=== PATIENT | male | born 1965 | race Two or more races ===

== ENCOUNTER 2025-05-29 13:16 | Emergency (ER) | payer OTHER ==
[~2025-05-29] VITALS: Ht 167.6 cm; Wt 72.6 kg
[2025-05-29] MEDS ORDERED: LOSARTAN POTASS50 MG PO (13:45)
[2025-05-29] MEDS ORDERED: ATORVASTATIN CA20 MG PO (13:46)
[2025-05-29] MEDS ORDERED: AMLODIPINE-OLM1 EACH PO (13:47)
[2025-05-29] MEDS ORDERED: OMEPRAZOLE MAGN20 MG PO (13:48)
[2025-05-29] MEDS ORDERED: NASAL MIST126 ML (13:48)
[2025-05-29] MEDS ORDERED: LACTOBACILLUS ACIDOPHILUS 1 CAP CAP PO ONE (17:45)
[2025-05-29] MEDS ORDERED: 0.9 % SODIUM CHLORIDE 1,000 ML IV ONE (17:45)
[2025-05-29 18:55] LABS: BASO % 0.1 % (0.1-1.2); EOS # 0.02 (0.04-0.54); EOS % 0.2 % (0.7-7.0); LYMPH # 0.82 (1.18-3.74); LYMPH % 9.3 % (19.3-53.1); MEAN PLATELET VOLUME 9.00 fl (9.4-12.4); MONO # 0.57 (0.24-0.82); MONO % 6.5 % (4.7-12.5); NEUT # 7.38 (1.56-6.13); NEUT % 83.6 % (34.0-71.1); RED CELL DISTRIBUTION WIDTH 13.5 % (11.6-14.4)
[2025-05-29 19:35] LABS: ALT/SGPT 133.0 U/L (12-78); AST/SGOT 69.0 U/L (15-37); BILIRUBIN TOTAL 0.4 mg/dL (0.3-1.2); BUN CREA RATIO 13.0 (7.0-25.0); CREATININE SERUM 1.06 mg/dL (0.70-1.30); GFR 72.01; GLOBULINA 5.0 G/DL (2.4-3.5); GLUCOSE FASTING 132.0 mg/dL (65-100); OSMOLALITY SERUM 278.0 MOSM/KG (275-295)
[2025-05-29 19:55] LABS: URINE APPEARANCE Clear; URINE BILIRRUBIN Negative (NEGATIVE); URINE BLOOD Small; URINE COLOR Yellow; URINE GLUCOSE Negative (NEGATIVE); URINE KETONE Negative (NEGATIVE); URINE LEUKOCYTE Negative; URINE NITRATE Negative; URINE PROTEIN Trace (NEGATIVE); URINE UROBILINOGEN 1.0 E.U./dl
[2025-05-29 19:59] LABS: URINE BACTERIA 8.4 uL (0.0-1933); URINE EPITHELIAL CELLS 11.2 uL (0.0-38.8); URINE RBC 27.1 uL (0.0-20.8); URINE WBC 11.0 uL (0.0-23.2)
[2025-05-29 20:13] LABS: URINE CAST 0.14 uL (0.0-1.40)
== END 2025-05-29 22:43 | disposition home or self-care (01) ==
LOC: ER 13:17
PROVIDERS: Preventive Medicine Public Health & General Preventive Medicine
DX: R53.1 Weakness (principal); D64.89 Other specified anemias; R53.81 Other malaise; I10 Essential (primary) hypertension; Z88.0 Allergy status to penicillin

== ENCOUNTER 2025-06-01 08:31 | Emergency (ER) | payer OTHER ==
[~2025-06-01] VITALS: Ht 167.6 cm; Wt 72.6 kg
[~2025-06-01 08:31] MED LIST: AMLODIPINE-OLM1 EACH PO; ATORVASTATIN CA20 MG PO; LOSARTAN POTASS50 MG PO; NASAL MIST126 ML; OMEPRAZOLE MAGN20 MG PO
[2025-06-01] MEDS ORDERED: KETOROLAC TROMETHAMINE 30 MG VIAL IV ONE (10:15)
[2025-06-01] MEDS ORDERED: FAMOTIDINE/PF 20 MG/2 ML VIAL IV ONE (10:15)
[2025-06-01] MEDS ORDERED: 0.9 % SODIUM CHLORIDE 1,000 ML IV ONE (10:15)
[2025-06-01] MEDS ORDERED: LACTOBACILLUS ACIDOPHILUS 1 CAP CAP PO ONE (10:15)
[2025-06-01 11:28] LABS: BASO % 0.0 % (0.1-1.2); EOS # 0.01 (0.04-0.54); EOS % 0.1 % (0.7-7.0); LYMPH # 0.61 (1.18-3.74); LYMPH % 8.0 % (19.3-53.1); MEAN PLATELET VOLUME 9.50 fl (9.4-12.4); MONO # 0.62 (0.24-0.82); MONO % 8.1 % (4.7-12.5); NEUT # 6.34 (1.56-6.13); NEUT % 83.4 % (34.0-71.1); RED CELL DISTRIBUTION WIDTH 13.5 % (11.6-14.4)
[2025-06-01 11:46] LABS: INR 1.18
[2025-06-01 11:51] LABS: ALT/SGPT 171.0 U/L (12-78); AST/SGOT 73.0 U/L (15-37); BILIRUBIN TOTAL 0.67 mg/dL (0.3-1.2); BUN CREA RATIO 10.0 (7.0-25.0); CREATININE SERUM 1.22 mg/dL (0.70-1.30); GFR 61.23; GLOBULINA 5.6 G/DL (2.4-3.5); GLUCOSE FASTING 114.0 mg/dL (65-100); OSMOLALITY SERUM 269.0 MOSM/KG (275-295)
[2025-06-01 13:16] LABS: URINE APPEARANCE Clear; URINE BILIRRUBIN Small (NEGATIVE); URINE BLOOD Moderate; URINE COLOR Dark Yellow; URINE GLUCOSE Negative (NEGATIVE); URINE KETONE Trace (NEGATIVE); URINE LEUKOCYTE Trace; URINE NITRATE Negative; URINE PROTEIN 30 (NEGATIVE); URINE UROBILINOGEN 1.0 E.U./dl
[2025-06-01 13:20] LABS: URINE BACTERIA 11.9 uL (0.0-1933); URINE EPITHELIAL CELLS 12.4 uL (0.0-38.8); URINE RBC 19.0 uL (0.0-20.8); URINE WBC 10.4 uL (0.0-23.2)
[2025-06-01 13:28] LABS: URINE CAST 0.29 uL (0.0-1.40)
[2025-06-01 13:29] LABS: URINE CRYSTALS FEW /HPF; URINE MUCUS HEAVY
[2025-06-01] MEDS ORDERED: DICY20TA PO (14:38)
== END 2025-06-01 15:16 | disposition home or self-care (01) ==
LOC: ER 08:32
DX: K52.89 Other specified noninfective gastroenteritis and colitis (principal); Z88.0 Allergy status to penicillin; R10.32 Left lower quadrant pain